=== PATIENT | male | born 1945 | race Caucasian/White ===

== ENCOUNTER 2017-03-27 07:46 | Inpatient (IN) | payer OTHER, MEDICARE ==
[~2017-03-27] VITALS: Ht 182.9 cm; Wt 81.6 kg
--- NOTE | ~2017-03-27 | OP ---
PATIENT NAME: NITISH CENTENO MEDICAL RECORD: [id number] :47 LOCATION:D.M2 D.2115 ADMISSION DATE:03/27/17 SURGEON: JOSEPH CANTU MD DATE OF OPERATION: 04/01/2017 PREOPERATIVE DIAGNOSES: 1. Cecal mass. 2. Partial small bowel obstruction secondary to cecal mass. 3. Mesenteric lymphadenopathy, likely secondary to metastatic disease. 4. Chronic kidney disease. 5. Hypertension. 6. Coronary artery disease. POSTOPERATIVE DIAGNOSES: 1. Cecal mass. 2. Partial small bowel obstruction secondary to cecal mass. 3. Mesenteric lymphadenopathy, likely secondary to metastatic disease. 4. Chronic kidney disease. 5. Hypertension. 6. Coronary artery disease. PROCEDURE: Hand-assisted laparoscopic right hemicolectomy. SURGEON: Joseph Cantu MD REPORT OF PROCEDURE: The patient's abdomen was prepped and draped in sterile fashion. A skin incision was made around the umbilicus. Electrocautery was used to dissect through the subcutaneous tissue and we penetrated the abdominal cavity. A Gelport was inserted and the abdomen was insufflated. Under direct visualization, a 5-mm trocar was placed in the epigastrium and another was placed in the right subcostal region. The patient had some adhesions present in the right upper quadrant of the omentum to the anterior abdominal wall. These were taken down with blunt dissection until this area of the abdomen was free. As I put my hand into the abdomen, I could feel the mass present and it was adherent to the inferior aspect of the right abdomen, close to the pelvic inlet. Electrocautery was used to come around the peritoneum and I was able to get past the mass, which did not appear to incorporate any vascular structures or the ureter. The mass was completely excised from the surrounding tissue, from the peritoneal attachments. At this point, we took down the white line of Toldt and the hepatic flexure and then we were able to mobilize the colon medially. The patient had some very dense and nodular lymph nodes present, extending all the way down to the retroperitoneum. The patient had some bleeding from the area around the duodenum overlying the pancreas where some of these lymph nodes were present. I Kocherized the duodenum, and at that point, was able to apply pressure to stop the bleeding. The patient's omentum was taken down between the stomach and the proximal transverse colon to facilitate mobilization of the colon. At this point, we eviscerated the mass in distal small bowel and colon out of the wound protector. Approximately 10 cm proximal to the terminal ileum, the small bowel was transected with 60 blue load KARI stapler. The proximal transverse colon was transected with the 60 blue load KARI stapler. The mesentery was taken down with sequential clamp and tie techniques with 2-0 silk ties. The base of the mesentery with the enlarged lymph nodes was tied off including 2 large vessels. These were tied off with double ligation of 3-0 silks. The mass was sent off for permanent specimen. At this point, the patient's omentum had been adherent to the abdominal wall and had beaten up OPERATIVE REPORT [id number] NITISH CENTENO pretty badly during the surgery, so this was excised and sent off for permanent specimen with the colon. As we inspected the remainder of the abdominal cavity, I saw no evidence of any distal metastatic disease, but there was still some enlarged lymph nodes present in the retroperitoneal space around the aorta and the vena cava. These were not approached. At this point, we irrigated out the abdomen thoroughly with normal saline. A [id number] anastomosis was performed of the small bowel to the transverse colon using a 60 blue load KARI stapler. The enterotomies were closed off with a 30 blue load TA stapler and then the suture lines were oversewn with Lemberted 3-0 silks. The bowel was placed back into the abdominal cavity. We irrigated out the abdomen one last time and assured there was no sign of any active bleeding, which we did not see. The midline fascia was then closed with running #1 looped PDS times 2. The wound was then irrigated out thoroughly with normal saline and reapproximated with interrupted 3-0 Vicryl. The skin was then closed with suri and dressed appropriately. COMPLICATIONS: None. CONDITION: Stable. ANESTHESIA: General endotracheal. BLOOD LOSS: 200 mL. TRANSINT:[id number] Voice Confirmation ID: [id number] DOCUMENT ID: [id number] JOSEPH CANTU MD at 1133 CC: JOSIANE ROWLAND MD and JESUS MANUEL BEE DO [id number] DICTATION DATE: 04/01/17 1540 MIXING PICKER TENDER: 04/01/17 1639 DIS IN 04/04/17 [facility] [address] [facility] [place] [address]
[2017-03-27 08:23] LABS: BASOPHILS 0.2 % (0-2); EOSINOPHILS 0.4 % (0-7); HEMATOCRIT 34.9 % (42.0-54.0); HEMOGLOBIN 11.3 g/dL (13.5-17.5); IMMATURE GRANULOCYTES 0.3 % (0-5); LYMPHOCYTES 10.9 % (15-50); MCH 26.6 pg (26.0-34.0); MCHC 32.4 g/dL (31.0-37.0); MCV 82.1 fL (80.0-100.0); MEAN PLATELET VOLUME 9.8 fL (7.4-10.4); MONOCYTES 11.9 % (2-11); NEUTROPHILS 76.3 % (40-80); PLATELET COUNT 355 10x3/uL (130-400); RBC 4.25 10x6/uL (4.20-6.10); RDW 16.1 % (11.5-14.5); WBC 12.8 10x3/uL (4.8-10.8)
[2017-03-27 08:41] LABS: ALBUMIN 2.7 g/dL (3.4-5.0); ALKALINE PHOSPHATASE 149 U/L (46-116); ALT (SGPT) 21 U/L (10-68); BILIRUBIN - TOTAL 0.79 mg/dL (0.2-1.3); CALC OSMOLALITY 286 mosm/kg (275-300); CALCIUM 9.6 mg/dL (8.5-10.1); CARBON DIOXIDE 22.7 mmol/L (21.0-32.0); CHLORIDE - SERUM 98 mmol/L (98-107); CREATININE - SERUM 2.1 mg/dL (0.6-1.3); POTASSIUM - SERUM 4.5 mmol/L (3.5-5.1); PROTEIN - SERUM 7.4 g/dL (6.4-8.2); SODIUM 135 mmol/L (136-145); UREA NITROGEN 35 mg/dL (7-18); eGFR NON AFRICAN AMERICAN 33 mL/min (90-120)
[2017-03-27 08:49] LABS: GLUCOSE 261 mg/dL (74-106)
[2017-03-27 08:52] LABS: AMYLASE - SERUM 21 U/L (25-115); CKMB 1.6 U/L (0.0-3.6); CREATINE KINASE 16 UL (21-232); LIPASE 121 U/L (73-393); PRO BNP 3199 pg/mL (0-125)
[2017-03-27 08:52] LABS: APPEARANCE HAZY (CLEAR); BILIRUBIN NEGATIVE (NEGATIVE); COLOR YELLOW (YELLOW); GLUCOSE NEGATIVE (NEGATIVE); KETONE NEGATIVE (NEGATIVE); NITRITE NEGATIVE (NEGATIVE); PROTEIN NEGATIVE (NEGATIVE); UROBILINOGEN NORMAL (NORMAL)
[2017-03-27 08:54] LABS: TROPONIN-I < 0.017 ng/mL (0.000-0.060)
[2017-03-27 16:19] VITALS: BP 110/54
[2017-03-27] MEDS ORDERED: COUMADIN5 MG PO (16:25)
[2017-03-27] MEDS ORDERED: COUMADIN2.5 MG PO (16:25)
[2017-03-27] MEDS ORDERED: ALDACTONE25 MG PO (16:26)
[2017-03-27] MEDS ORDERED: TOPROL XL200 MG PO (16:26)
[2017-03-27] MEDS ORDERED: LISINOPRIL5 MG PO (16:27)
[2017-03-27] MEDS ORDERED: LIPITOR80 MG PO (16:27)
[2017-03-27 16:33] VITALS: BP 110/54; BMI 24.4
[2017-03-27 21:32] LABS: INR 8.5 (0.85-1.17)
[2017-03-27 21:39] VITALS: BP 93/61
[2017-03-28] VITALS (12 sets, daily range): BP systolic 87–144; BP diastolic 52–68; Ht 182.9 cm; Wt 81.6 kg
[2017-03-28 05:46] LABS: BASOPHILS 0.2 % (0-2); EOSINOPHILS 0.6 % (0-7); HEMATOCRIT 32.5 % (42.0-54.0); HEMOGLOBIN 10.3 g/dL (13.5-17.5); IMMATURE GRANULOCYTES 0.2 % (0-5); LYMPHOCYTES 12.3 % (15-50); MCH 26.7 pg (26.0-34.0); MCHC 31.7 g/dL (31.0-37.0); MONOCYTES 16.1 % (2-11); NEUTROPHILS 70.6 % (40-80); PLATELET COUNT 319 10x3/uL (130-400); RBC 3.86 10x6/uL (4.20-6.10); RDW 16.6 % (11.5-14.5)
[2017-03-28 05:49] LABS: MCV 84.2 fL (80.0-100.0); WBC 6.5 10x3/uL (4.8-10.8)
[2017-03-28 06:08] LABS: ALBUMIN 2.2 g/dL (3.4-5.0); ANION GAP 14.2 mmol/L (8-16); BILIRUBIN - TOTAL 0.4 mg/dL (0.2-1.3); CALCIUM 8.9 mg/dL (8.5-10.1); CARBON DIOXIDE 25.3 mmol/L (21.0-32.0); CREATININE - SERUM 1.9 mg/dL (0.6-1.3); PROTEIN - SERUM 6.3 g/dL (6.4-8.2)
[2017-03-28 06:09] LABS: POTASSIUM - SERUM 5.5 mmol/L (3.5-5.1)
[2017-03-28 07:56] LABS: INR 9.28 (0.85-1.17)
[2017-03-28 15:40] LABS: INR 2.86 (0.85-1.17); PROTIME 29.3 SECONDS (11.6-15.0)
[2017-03-28 16:30] LABS: HEMATOCRIT 28.7 % (42.0-54.0)
[2017-03-28 22:52] LABS: HEMATOCRIT 30.4 % (42.0-54.0); HEMOGLOBIN 9.5 g/dL (13.5-17.5)
[2017-03-28 23:19] LABS: INR 2.62 (0.85-1.17); PROTIME 27.4 SECONDS (11.6-15.0)
[2017-03-29] VITALS (20 sets, daily range): BP systolic 84–121; BP diastolic 47–72
[2017-03-29 05:54] LABS: LYMPHOCYTES 8.3 % (15-50); MCHC 32.2 g/dL (31.0-37.0); MCV 83.9 fL (80.0-100.0); MEAN PLATELET VOLUME 9.4 fL (7.4-10.4); NEUTROPHILS 74.6 % (40-80); RBC 4.29 10x6/uL (4.20-6.10); RDW 15.9 % (11.5-14.5); WBC 6.9 10x3/uL (4.8-10.8)
[2017-03-29 05:56] LABS: HEMOGLOBIN 11.6 g/dL (13.5-17.5); PLATELET COUNT 234 10x3/uL (130-400)
[2017-03-29 06:10] LABS: INR 2.15 (0.85-1.17); PROTIME 23.3 SECONDS (11.6-15.0)
[2017-03-29 06:12] LABS: ALBUMIN 2.3 g/dL (3.4-5.0); ANION GAP 10.2 mmol/L (8-16); BILIRUBIN - TOTAL 0.6 mg/dL (0.2-1.3); CALCIUM 8.5 mg/dL (8.5-10.1); CARBON DIOXIDE 27.1 mmol/L (21.0-32.0); CREATININE - SERUM 1.5 mg/dL (0.6-1.3); POTASSIUM - SERUM 4.3 mmol/L (3.5-5.1); PROTEIN - SERUM 6.2 g/dL (6.4-8.2)
[2017-03-29 09:55] LABS: HEMATOCRIT 36.3 % (42.0-54.0); HEMOGLOBIN 11.8 g/dL (13.5-17.5)
[2017-03-29 15:09] LABS: HEMATOCRIT 36.7 % (42.0-54.0); HEMOGLOBIN 11.8 g/dL (13.5-17.5)
[2017-03-29 21:19] LABS: HEMATOCRIT 35.9 % (42.0-54.0); HEMOGLOBIN 11.5 g/dL (13.5-17.5)
[2017-03-30 01:15] VITALS: BP 108/57
[2017-03-30 05:05] VITALS: BP 120/68
[2017-03-30 05:32] LABS: BASOPHILS 0.2 % (0-2); EOSINOPHILS 2.1 % (0-7); HEMATOCRIT 34.6 % (42.0-54.0); IMMATURE GRANULOCYTES 0.5 % (0-5); LYMPHOCYTES 10.3 % (15-50); MCHC 31.8 g/dL (31.0-37.0); MEAN PLATELET VOLUME 10.1 fL (7.4-10.4); MONOCYTES 16.3 % (2-11); NEUTROPHILS 70.6 % (40-80); PLATELET COUNT 226 10x3/uL (130-400); RBC 4.07 10x6/uL (4.20-6.10); RDW 16.4 % (11.5-14.5); WBC 6.6 10x3/uL (4.8-10.8)
[2017-03-30 05:46] LABS: INR 1.58 (0.85-1.17); PROTIME 18.3 SECONDS (11.6-15.0)
[2017-03-30 06:02] LABS: ALBUMIN 2.1 g/dL (3.4-5.0); ANION GAP 11.3 mmol/L (8-16); BILIRUBIN - TOTAL 0.6 mg/dL (0.2-1.3); CARBON DIOXIDE 25.6 mmol/L (21.0-32.0); CREATININE - SERUM 1.2 mg/dL (0.6-1.3); POTASSIUM - SERUM 3.9 mmol/L (3.5-5.1); PROTEIN - SERUM 5.8 g/dL (6.4-8.2)
[2017-03-30 07:55] VITALS: BP 105/62
[2017-03-30 09:03] LABS: HEMATOCRIT 35.1 % (42.0-54.0); HEMOGLOBIN 11.2 g/dL (13.5-17.5)
[2017-03-30 12:00] VITALS: BP 123/52
[2017-03-30 15:34] LABS: HEMATOCRIT 35.2 % (42.0-54.0); HEMOGLOBIN 11.2 g/dL (13.5-17.5)
[2017-03-30 16:14] VITALS: BP 118/64
[2017-03-30 21:40] LABS: HEMOGLOBIN 10.8 g/dL (13.5-17.5)
[2017-03-30 22:26] VITALS: BP 125/67
[2017-03-31 05:05] LABS: BASOPHILS 0.1 % (0-2); EOSINOPHILS 1.2 % (0-7); HEMATOCRIT 35.3 % (42.0-54.0); IMMATURE GRANULOCYTES 0.4 % (0-5); MCH 26.8 pg (26.0-34.0); MCHC 31.2 g/dL (31.0-37.0); MCV 85.9 fL (80.0-100.0); MEAN PLATELET VOLUME 9.8 fL (7.4-10.4); MONOCYTES 11.8 % (2-11); NEUTROPHILS 78.5 % (40-80); PLATELET COUNT 243 10x3/uL (130-400); RBC 4.11 10x6/uL (4.20-6.10); RDW 16.2 % (11.5-14.5)
[2017-03-31 05:15] VITALS: BP 124/50
[2017-03-31 05:20] LABS: BILIRUBIN - TOTAL 0.6 mg/dL (0.2-1.3); CALCIUM 7.8 mg/dL (8.5-10.1); CARBON DIOXIDE 27.5 mmol/L (21.0-32.0); CREATININE - SERUM 1.1 mg/dL (0.6-1.3); POTASSIUM - SERUM 3.5 mmol/L (3.5-5.1); PROTEIN - SERUM 5.8 g/dL (6.4-8.2)
[2017-03-31 05:21] LABS: INR 1.64 (0.85-1.17); PROTIME 18.9 SECONDS (11.6-15.0)
[2017-03-31 08:37] VITALS: BP 118/65
[2017-03-31 10:44] LABS: HEMATOCRIT 38.1 % (42.0-54.0); HEMOGLOBIN 12.1 g/dL (13.5-17.5)
[2017-03-31 11:47] VITALS: BP 123/63
[2017-03-31 18:26] VITALS: BP 119/59
[2017-03-31 22:21] VITALS: BP 124/59
[2017-04-01 00:56] VITALS: BP 117/60
[2017-04-01 05:01] LABS: BASOPHILS 0.2 % (0-2); EOSINOPHILS 0.8 % (0-7); HEMATOCRIT 34.8 % (42.0-54.0); HEMOGLOBIN 11.1 g/dL (13.5-17.5); IMMATURE GRANULOCYTES 0.7 % (0-5); LYMPHOCYTES 9.3 % (15-50); MCH 27.2 pg (26.0-34.0); MCHC 31.9 g/dL (31.0-37.0); MCV 85.3 fL (80.0-100.0); MONOCYTES 10.6 % (2-11); NEUTROPHILS 78.4 % (40-80); PLATELET COUNT 232 10x3/uL (130-400); RBC 4.08 10x6/uL (4.20-6.10); RDW 16.3 % (11.5-14.5); WBC 8.7 10x3/uL (4.8-10.8)
[2017-04-01 05:13] LABS: INR 1.47 (0.85-1.17); PROTIME 17.4 SECONDS (11.6-15.0)
[2017-04-01 05:20] VITALS: BP 108/62
[2017-04-01 05:26] LABS: ALKALINE PHOSPHATASE 117 U/L (46-116); ALT (SGPT) 12 U/L (10-68); CALC OSMOLALITY 288 mosm/kg (275-300); CALCIUM 7.9 mg/dL (8.5-10.1); CARBON DIOXIDE 25.4 mmol/L (21.0-32.0); CHLORIDE - SERUM 109 mmol/L (98-107); GLUCOSE 151 mg/dL (74-106); POTASSIUM - SERUM 3.6 mmol/L (3.5-5.1); PROTEIN - SERUM 5.9 g/dL (6.4-8.2); SODIUM 144 mmol/L (136-145); eGFR NON AFRICAN AMERICAN 78 mL/min (90-120)
[2017-04-01 05:42] LABS: UREA NITROGEN 9 mg/dL (7-18)
[2017-04-01 16:37] VITALS: BP 106/50
[2017-04-01 22:12] VITALS: BP 105/58
[2017-04-02] VITALS (7 sets, daily range): BP systolic 80–138; BP diastolic 51–68
[2017-04-02 06:20] LABS: BASOPHILS 0.1 % (0-2); EOSINOPHILS 0.3 % (0-7); HEMATOCRIT 30.1 % (42.0-54.0); HEMOGLOBIN 9.4 g/dL (13.5-17.5); IMMATURE GRANULOCYTES 0.3 % (0-5); LYMPHOCYTES 7.5 % (15-50); MCH 26.7 pg (26.0-34.0); MCHC 31.2 g/dL (31.0-37.0); MCV 85.5 fL (80.0-100.0); MEAN PLATELET VOLUME 9.8 fL (7.4-10.4); MONOCYTES 13.2 % (2-11); NEUTROPHILS 78.6 % (40-80); PLATELET COUNT 242 10x3/uL (130-400); RBC 3.52 10x6/uL (4.20-6.10); RDW 16.6 % (11.5-14.5); WBC 8.9 10x3/uL (4.8-10.8)
[2017-04-02 06:50] LABS: ALBUMIN 1.7 g/dL (3.4-5.0); ANION GAP 13.8 mmol/L (8-16); BILIRUBIN - TOTAL 1.2 mg/dL (0.2-1.3); CALCIUM 7.3 mg/dL (8.5-10.1); CARBON DIOXIDE 23.5 mmol/L (21.0-32.0); MAGNESIUM - SERUM 1.7 mg/dL (1.8-2.4); PHOSPHOROUS 2.2 mg/dL (2.5-4.9); POTASSIUM - SERUM 3.3 mmol/L (3.5-5.1); PROTEIN - SERUM 5.2 g/dL (6.4-8.2)
[2017-04-02 06:51] LABS: CREATININE - SERUM 1.4 mg/dL (0.6-1.3)
[2017-04-02 06:54] LABS: INR 1.73 (0.85-1.17); PROTIME 19.7 SECONDS (11.6-15.0)
[2017-04-02 17:02] LABS: BASOPHILS 0.2 % (0-2); EOSINOPHILS 0.9 % (0-7); HEMATOCRIT 30.8 % (42.0-54.0); HEMOGLOBIN 9.6 g/dL (13.5-17.5); IMMATURE GRANULOCYTES 0.4 % (0-5); LYMPHOCYTES 6.8 % (15-50); MCH 26.7 pg (26.0-34.0); MCHC 31.2 g/dL (31.0-37.0); MCV 85.8 fL (80.0-100.0); MEAN PLATELET VOLUME 9.8 fL (7.4-10.4); MONOCYTES 11.1 % (2-11); NEUTROPHILS 80.6 % (40-80); PLATELET COUNT 208 10x3/uL (130-400); RBC 3.59 10x6/uL (4.20-6.10); RDW 16.5 % (11.5-14.5); WBC 10.7 10x3/uL (4.8-10.8)
[2017-04-02 17:48] LABS: CALC OSMOLALITY 295 mosm/kg (275-300); CALCIUM 7.6 mg/dL (8.5-10.1); CARBON DIOXIDE 23.2 mmol/L (21.0-32.0); CHLORIDE - SERUM 111 mmol/L (98-107); CKMB 1.3 U/L (0.0-3.6); CREATINE KINASE 38 UL (21-232); CREATININE - SERUM 1.3 mg/dL (0.6-1.3); GLUCOSE 185 mg/dL (74-106); SODIUM 146 mmol/L (136-145); UREA NITROGEN 13 mg/dL (7-18); eGFR NON AFRICAN AMERICAN 58 mL/min (90-120)
[2017-04-02 17:58] LABS: POTASSIUM - SERUM 3.8 mmol/L (3.5-5.1); TROPONIN-I < 0.017 ng/mL (0.000-0.060)
[2017-04-02 23:12] LABS: CKMB 1.9 U/L (0.0-3.6); CREATINE KINASE 30 UL (21-232)
[2017-04-02 23:29] LABS: TROPONIN-I 0.078 ng/mL (0.000-0.060)
[2017-04-03] VITALS: BP 118/68
[2017-04-03 04:00] VITALS: BP 120/78
[2017-04-03 05:26] LABS: CKMB 2.5 U/L (0.0-3.6); CREATINE KINASE 25 UL (21-232)
[2017-04-03 05:29] LABS: TROPONIN-I 0.107 ng/mL (0.000-0.060)
[2017-04-03 10:26] VITALS: BP 119/60
[2017-04-03 13:06] VITALS: BP 117/68
[2017-04-03 20:00] VITALS: BP 123/67
[2017-04-04] VITALS: BP 117/67
[2017-04-04 04:00] VITALS: BP 129/65
[2017-04-04 09:10] VITALS: BP 130/61
[2017-04-04] MEDS ORDERED: HYDROCODONE-APA1 TAB PO (11:39)
[2017-04-04] MEDS ORDERED: CARDIZEM60 MG PO (11:39)
[2017-04-04 12:55] VITALS: BP 102/53
== END 2017-04-04 16:44 | disposition home or self-care (01) | DRG 330 ==
LOC: D.ER 07:46 → D.M2 14:18 → D.MS 14:18 → D.M2 04-02 17:16
PROVIDERS: Family Medicine; General Practice; Surgery
PROC: 0DBH8ZX Excision of Cecum, Via Natural or Artificial Opening Endoscopic, Diagnostic (ICD-10-PCS; 2017-03-31)
PROC: 0DTF0ZZ Resection of Right Large Intestine, Open Approach (ICD-10-PCS; principal; 2017-04-01 14:00)
DX: C18.0 Malignant neoplasm of cecum (principal); K56.609 Unspecified intestinal obstruction, unspecified as to partial versus complete obstruction; I13.0 Hypertensive heart and chronic kidney disease with heart failure and stage 1 through stage 4 chronic kidney disease, or unspecified chronic kidney disease; D62 Acute posthemorrhagic anemia; K92.2 Gastrointestinal hemorrhage, unspecified; I50.22 Chronic systolic (congestive) heart failure; I25.10 Atherosclerotic heart disease of native coronary artery without angina pectoris; J44.9 Chronic obstructive pulmonary disease, unspecified; E11.22 Type 2 diabetes mellitus with diabetic chronic kidney disease; N18.3 Chronic kidney disease, stage 3 (moderate); I50.9 Heart failure, unspecified; I48.91 Unspecified atrial fibrillation; Z95.810 Presence of automatic (implantable) cardiac defibrillator; Z87.891 Personal history of nicotine dependence; Z95.1 Presence of aortocoronary bypass graft

== ENCOUNTER 2017-04-10 10:01 | Inpatient (IN) | payer MEDICARE ==
[~2017-04-10 10:01] MED LIST: ALDACTONE25 MG PO; CARDIZEM60 MG PO; COUMADIN2.5 MG PO; COUMADIN5 MG PO; HYDROCODONE-APA1 TAB PO; LIPITOR80 MG PO; LISINOPRIL5 MG PO; TOPROL XL200 MG PO
[2017-04-10 10:35] LABS: BASOPHILS 0.1 % (0-2); EOSINOPHILS 0.4 % (0-7); HEMOGLOBIN 8.8 g/dL (13.5-17.5); IMMATURE GRANULOCYTES 0.2 % (0-5); LYMPHOCYTES 4.1 % (15-50); MCH 26.8 pg (26.0-34.0); MCHC 32.6 g/dL (31.0-37.0); MCV 82.3 fL (80.0-100.0); MEAN PLATELET VOLUME 9.6 fL (7.4-10.4); MONOCYTES 7.7 % (2-11); NEUTROPHILS 87.5 % (40-80); RBC 3.28 10x6/uL (4.20-6.10); RDW 16.7 % (11.5-14.5); WBC 16.4 10x3/uL (4.8-10.8)
[2017-04-10 10:40] LABS: PLATELET COUNT 315 10x3/uL (130-400)
[2017-04-10 10:55] LABS: ALBUMIN 1.5 g/dL (3.4-5.0); ANION GAP 10.4 mmol/L (8-16); BILIRUBIN - TOTAL 0.8 mg/dL (0.2-1.3); CARBON DIOXIDE 29.4 mmol/L (21.0-32.0); CREATININE - SERUM 1.3 mg/dL (0.6-1.3); POTASSIUM - SERUM 3.8 mmol/L (3.5-5.1); PROTEIN - SERUM 5.7 g/dL (6.4-8.2)
[2017-04-10 10:56] LABS: APPEARANCE CLOUDY (CLEAR); BACTERIA MANY /hpf (NONE SEEN); BILIRUBIN NEGATIVE (NEGATIVE); COLOR DK YELLOW (YELLOW); EPITHELIAL CELLS 0-5 /hpf (0-5); GLUCOSE NEGATIVE (NEGATIVE); KETONE NEGATIVE (NEGATIVE); NITRITE NEGATIVE (NEGATIVE); PROTEIN NEGATIVE (NEGATIVE); RED CELLS - URINE OCC /hpf (0-5); SPECIFIC GRAVITY 1.005 (1.005-1.020); WHITE CELLS - URINE 25-50 /hpf (0-5)
[2017-04-10 12:23] LABS: INR 2.22 (0.85-1.17)
[2017-04-10 12:25] LABS: CREATINE KINASE 11 UL (21-232); MAGNESIUM - SERUM 2.2 mg/dL (1.8-2.4); PRO BNP 7521 pg/mL (0-125)
[2017-04-10 12:26] LABS: TROPONIN-I < 0.017 ng/mL (0.000-0.060)
[2017-04-10 12:54] LABS: D-DIMER-QUANTITATIVE 6.32 ug/mLFEU (0.20-0.54)
[2017-04-10 21:58] VITALS: BP 128/58
[2017-04-10 23:47] VITALS: BP 128/58; BMI 23.1
[2017-04-11 00:11] VITALS: BP 128/54
[2017-04-11 03:10] LABS: BASOPHILS 0.1 % (0-2); EOSINOPHILS 0.7 % (0-7); HEMATOCRIT 25.5 % (42.0-54.0); HEMOGLOBIN 8.1 g/dL (13.5-17.5); IMMATURE GRANULOCYTES 0.4 % (0-5); LYMPHOCYTES 6.3 % (15-50); MCH 26.4 pg (26.0-34.0); MCHC 31.8 g/dL (31.0-37.0); MCV 83.1 fL (80.0-100.0); MEAN PLATELET VOLUME 9.6 fL (7.4-10.4); MONOCYTES 7.6 % (2-11); NEUTROPHILS 84.9 % (40-80); PLATELET COUNT 326 10x3/uL (130-400); RBC 3.07 10x6/uL (4.20-6.10); RDW 16.9 % (11.5-14.5); WBC 13.9 10x3/uL (4.8-10.8)
[2017-04-11 03:27] LABS: ALBUMIN 1.3 g/dL (3.4-5.0); ANION GAP 11.8 mmol/L (8-16); BILIRUBIN - TOTAL 0.73 mg/dL (0.2-1.3); CALCIUM 7.7 mg/dL (8.5-10.1); CARBON DIOXIDE 29.1 mmol/L (21.0-32.0); CREATININE - SERUM 1.2 mg/dL (0.6-1.3); POTASSIUM - SERUM 3.9 mmol/L (3.5-5.1); PROTEIN - SERUM 5.6 g/dL (6.4-8.2)
[2017-04-11 05:16] VITALS: BP 132/58
[2017-04-11 08:39] VITALS: BP 130/57
[2017-04-11 13:14] VITALS: BP 121/59
[2017-04-11 14:12] VITALS: BMI 23.0
[2017-04-11 16:48] VITALS: BP 115/60
[2017-04-11 21:35] VITALS: BP 117/57
[2017-04-12 00:45] VITALS: BP 112/61
[2017-04-12 04:54] VITALS: BP 118/60
[2017-04-12 08:07] LABS: BASOPHILS 0.1 % (0-2); EOSINOPHILS 0.6 % (0-7); HEMATOCRIT 24.7 % (42.0-54.0); HEMOGLOBIN 7.9 g/dL (13.5-17.5); IMMATURE GRANULOCYTES 0.4 % (0-5); LYMPHOCYTES 4.4 % (15-50); MCH 26.9 pg (26.0-34.0); MEAN PLATELET VOLUME 9.4 fL (7.4-10.4); MONOCYTES 7.4 % (2-11); NEUTROPHILS 87.1 % (40-80); PLATELET COUNT 382 10x3/uL (130-400); RBC 2.94 10x6/uL (4.20-6.10); WBC 16.3 10x3/uL (4.8-10.8)
[2017-04-12 08:10] VITALS: BP 118/63
[2017-04-12 08:18] LABS: ALBUMIN 1.2 g/dL (3.4-5.0); ANION GAP 12.4 mmol/L (8-16); BILIRUBIN - TOTAL 0.53 mg/dL (0.2-1.3); CALCIUM 7.6 mg/dL (8.5-10.1); CARBON DIOXIDE 25.7 mmol/L (21.0-32.0); CREATININE - SERUM 1.2 mg/dL (0.6-1.3); MAGNESIUM - SERUM 2.2 mg/dL (1.8-2.4); PHOSPHOROUS 3.1 mg/dL (2.5-4.9); POTASSIUM - SERUM 4.1 mmol/L (3.5-5.1); PROTEIN - SERUM 5.3 g/dL (6.4-8.2)
[2017-04-12 11:31] VITALS: BP 118/59
[2017-04-12 15:29] VITALS: BP 123/58
[2017-04-13 01:49] VITALS: BP 114/63
[2017-04-13 04:57] VITALS: BP 111/68
[2017-04-13 07:54] LABS: BASOPHILS 0.2 % (0-2); EOSINOPHILS 1.2 % (0-7); IMMATURE GRANULOCYTES 0.3 % (0-5); LYMPHOCYTES 4.6 % (15-50); MCH 27.6 pg (26.0-34.0); MCHC 33.3 g/dL (31.0-37.0); MCV 82.7 fL (80.0-100.0); MEAN PLATELET VOLUME 9.4 fL (7.4-10.4); MONOCYTES 5.8 % (2-11); NEUTROPHILS 87.9 % (40-80); PLATELET COUNT 434 10x3/uL (130-400); RDW 16.4 % (11.5-14.5); WBC 16.9 10x3/uL (4.8-10.8)
[2017-04-13 07:55] LABS: HEMATOCRIT 31.5 % (42.0-54.0); HEMOGLOBIN 10.5 g/dL (13.5-17.5); RBC 3.81 10x6/uL (4.20-6.10)
[2017-04-13 08:08] LABS: ALBUMIN 1.4 g/dL (3.4-5.0); ANION GAP 11.3 mmol/L (8-16); BILIRUBIN - TOTAL 0.88 mg/dL (0.2-1.3); CALCIUM 7.9 mg/dL (8.5-10.1); CARBON DIOXIDE 27.7 mmol/L (21.0-32.0); CREATININE - SERUM 1.1 mg/dL (0.6-1.3); MAGNESIUM - SERUM 1.9 mg/dL (1.8-2.4); PHOSPHOROUS 2.6 mg/dL (2.5-4.9); PROTEIN - SERUM 5.6 g/dL (6.4-8.2)
[2017-04-13 08:19] LABS: INR 5.45 (0.85-1.17); PROTIME 48.6 SECONDS (11.6-15.0)
[2017-04-13 09:10] VITALS: BP 132/68
[2017-04-13 10:42] LABS: PROTIME 46.9 SECONDS (11.6-15.0)
[2017-04-13 10:58] LABS: INR 5.21 (0.85-1.17)
[2017-04-13 11:34] VITALS: BP 128/66
[2017-04-13 22:00] VITALS: BP 125/64
[2017-04-14 01:42] VITALS: BP 142/64
[2017-04-14 04:32] LABS: BASOPHILS 0.2 % (0-2); EOSINOPHILS 1.6 % (0-7); HEMATOCRIT 32.5 % (42.0-54.0); HEMOGLOBIN 10.6 g/dL (13.5-17.5); IMMATURE GRANULOCYTES 0.5 % (0-5); LYMPHOCYTES 6.5 % (15-50); MCH 27.3 pg (26.0-34.0); MCHC 32.6 g/dL (31.0-37.0); MCV 83.8 fL (80.0-100.0); MEAN PLATELET VOLUME 9.3 fL (7.4-10.4); MONOCYTES 6.3 % (2-11); NEUTROPHILS 84.9 % (40-80); PLATELET COUNT 516 10x3/uL (130-400); RBC 3.88 10x6/uL (4.20-6.10); RDW 16.6 % (11.5-14.5); WBC 13.1 10x3/uL (4.8-10.8)
[2017-04-14 04:48] LABS: INR 4.67 (0.85-1.17); PROTIME 43.1 SECONDS (11.6-15.0)
[2017-04-14 05:08] LABS: ALBUMIN 1.3 g/dL (3.4-5.0); ANION GAP 9.2 mmol/L (8-16); BILIRUBIN - TOTAL 0.54 mg/dL (0.2-1.3); CALCIUM 7.9 mg/dL (8.5-10.1); CARBON DIOXIDE 28.5 mmol/L (21.0-32.0); CREATININE - SERUM 1.2 mg/dL (0.6-1.3); MAGNESIUM - SERUM 1.9 mg/dL (1.8-2.4); POTASSIUM - SERUM 3.7 mmol/L (3.5-5.1); PROTEIN - SERUM 5.6 g/dL (6.4-8.2)
[2017-04-14 05:55] VITALS: BP 124/65
[2017-04-14 08:04] VITALS: BP 123/66
[2017-04-14 12:02] VITALS: BP 134/67
[2017-04-14 15:33] VITALS: BP 139/66
[2017-04-14 21:52] VITALS: BP 128/66
[2017-04-15 00:48] VITALS: BP 128/70
[2017-04-15 05:28] LABS: INR 2.91 (0.85-1.17); PROTIME 29.7 SECONDS (11.6-15.0)
[2017-04-15 05:33] VITALS: BP 116/71
[2017-04-15 05:40] LABS: ALBUMIN 1.2 g/dL (3.4-5.0); ANION GAP 12.3 mmol/L (8-16); BILIRUBIN - TOTAL 0.48 mg/dL (0.2-1.3); CALCIUM 7.7 mg/dL (8.5-10.1); CARBON DIOXIDE 26.5 mmol/L (21.0-32.0); CREATININE - SERUM 1.1 mg/dL (0.6-1.3); PHOSPHOROUS 2.3 mg/dL (2.5-4.9); POTASSIUM - SERUM 3.8 mmol/L (3.5-5.1); PROTEIN - SERUM 5.2 g/dL (6.4-8.2)
[2017-04-15 06:04] LABS: HEMATOCRIT 29.3 % (42.0-54.0); HEMOGLOBIN 9.8 g/dL (13.5-17.5); LYMPHOCYTES 8.9 % (15-50); MCH 28.2 pg (26.0-34.0); MCHC 33.4 g/dL (31.0-37.0); MCV 84.4 fL (80.0-100.0); MEAN PLATELET VOLUME 8.9 fL (7.4-10.4); NEUTROPHILS 82.6 % (40-80); PLATELET COUNT 517 10x3/uL (130-400); RBC 3.47 10x6/uL (4.20-6.10)
[2017-04-15 06:12] LABS: WBC 9.5 10x3/uL (4.8-10.8)
[2017-04-15 07:54] VITALS: BP 136/71
[2017-04-15 12:26] VITALS: BP 138/72
[2017-04-15 16:14] VITALS: BP 130/68
[2017-04-15 21:28] VITALS: BP 125/65
[2017-04-16 00:56] VITALS: BP 124/64
[2017-04-16 04:36] VITALS: BP 124/69
[2017-04-16 07:46] LABS: BASOPHILS 0.2 % (0-2); EOSINOPHILS 1.3 % (0-7); HEMATOCRIT 29.7 % (42.0-54.0); HEMOGLOBIN 9.4 g/dL (13.5-17.5); IMMATURE GRANULOCYTES 0.5 % (0-5); LYMPHOCYTES 10.8 % (15-50); MCH 27.1 pg (26.0-34.0); MCHC 31.6 g/dL (31.0-37.0); MCV 85.6 fL (80.0-100.0); MEAN PLATELET VOLUME 8.9 fL (7.4-10.4); MONOCYTES 7.4 % (2-11); NEUTROPHILS 79.8 % (40-80); PLATELET COUNT 487 10x3/uL (130-400); RBC 3.47 10x6/uL (4.20-6.10); RDW 16.8 % (11.5-14.5); WBC 8.2 10x3/uL (4.8-10.8)
[2017-04-16 07:57] LABS: ALBUMIN 1.4 g/dL (3.4-5.0); ALKALINE PHOSPHATASE 134 U/L (46-116); ALT (SGPT) 24 U/L (10-68); CALC OSMOLALITY 282 mosm/kg (275-300); CALCIUM 7.7 mg/dL (8.5-10.1); CARBON DIOXIDE 28.6 mmol/L (21.0-32.0); CHLORIDE - SERUM 106 mmol/L (98-107); GLUCOSE 143 mg/dL (74-106); POTASSIUM - SERUM 4.3 mmol/L (3.5-5.1); PROTEIN - SERUM 5.3 g/dL (6.4-8.2); SODIUM 141 mmol/L (136-145); UREA NITROGEN 12 mg/dL (7-18); eGFR NON AFRICAN AMERICAN 78 mL/min (90-120)
[2017-04-16 08:05] LABS: INR 2.05 (0.85-1.17); PROTIME 22.5 SECONDS (11.6-15.0)
[2017-04-16 08:06] VITALS: BP 126/73
[2017-04-16] MEDS ORDERED: AUGMENTIN 875-11 TAB PO (10:28)
[2017-04-16] MEDS ORDERED: COUMADIN2.5 MG PO (10:30)
== END 2017-04-16 16:16 | disposition home or self-care (01) | DRG 811 ==
LOC: D.ER 10:01 → D.SDCHOLD 17:31 → D.MS 17:31
PROVIDERS: Family Medicine; Nurse Practitioner Family; Surgery
DX: D62 Acute posthemorrhagic anemia (principal); J18.9 Pneumonia, unspecified organism; N39.0 Urinary tract infection, site not specified; I13.0 Hypertensive heart and chronic kidney disease with heart failure and stage 1 through stage 4 chronic kidney disease, or unspecified chronic kidney disease; J98.11 Atelectasis; C19 Malignant neoplasm of rectosigmoid junction; C77.2 Secondary and unspecified malignant neoplasm of intra-abdominal lymph nodes; E11.22 Type 2 diabetes mellitus with diabetic chronic kidney disease; N18.3 Chronic kidney disease, stage 3 (moderate); I50.9 Heart failure, unspecified; I25.10 Atherosclerotic heart disease of native coronary artery without angina pectoris; Z99.81 Dependence on supplemental oxygen; G47.33 Obstructive sleep apnea (adult) (pediatric); J30.9 Allergic rhinitis, unspecified; Z95.810 Presence of automatic (implantable) cardiac defibrillator; Z95.1 Presence of aortocoronary bypass graft; Z87.891 Personal history of nicotine dependence; B96.89 Other specified bacterial agents as the cause of diseases classified elsewhere

== ENCOUNTER 2017-05-02 12:12 | Emergency (ER) | payer MEDICARE, OTHER ==
[~2017-05-02 12:12] MED LIST changes: +AUGMENTIN 875-11 TAB PO
[2017-05-02 15:16] LABS: BASOPHILS 0.3 % (0-2); EOSINOPHILS 0.8 % (0-7); HEMATOCRIT 32.9 % (42.0-54.0); HEMOGLOBIN 10.5 g/dL (13.5-17.5); IMMATURE GRANULOCYTES 0.3 % (0-5); MCH 27.5 pg (26.0-34.0); MCHC 31.9 g/dL (31.0-37.0); MCV 86.1 fL (80.0-100.0); MONOCYTES 4.4 % (2-11); NEUTROPHILS 83.2 % (40-80); RBC 3.82 10x6/uL (4.20-6.10); RDW 17.2 % (11.5-14.5); WBC 9.7 10x3/uL (4.8-10.8)
[2017-05-02 15:17] LABS: PLATELET COUNT 280 10x3/uL (130-400)
[2017-05-02 15:30] LABS: ALBUMIN 2.2 g/dL (3.4-5.0); ANION GAP 12.9 mmol/L (8-16); BILIRUBIN - TOTAL 0.35 mg/dL (0.2-1.3); CALCIUM 8.9 mg/dL (8.5-10.1); CARBON DIOXIDE 25.2 mmol/L (21.0-32.0); CREATININE - SERUM 1.2 mg/dL (0.6-1.3); POTASSIUM - SERUM 5.1 mmol/L (3.5-5.1); PROTEIN - SERUM 6.6 g/dL (6.4-8.2)
== END 2017-05-02 18:29 ==
LOC: D.ER 12:12
PROVIDERS: Emergency Medicine
DX: I49.9 Cardiac arrhythmia, unspecified (principal); T82.897A Other specified complication of cardiac prosthetic devices, implants and grafts, initial encounter

== ENCOUNTER 2017-06-02 12:50 | Inpatient (IN) | payer MEDICARE, OTHER ==
[2017-06-02] VITALS (20 sets, daily range): BP systolic 77–110; BP diastolic 56–97; BMI 22.6
[~2017-06-02] VITALS: Ht 182.9 cm; Wt 84.5 kg
--- NOTE | ~2017-06-02 | EC ---
PATIENT:NITISH CENTENO DATE OF SERVICE: 06/02/17 SEX: M MEDICAL RECORD: [id number] DATE OF : 47 LOCATION:D.MS [place] AGE OF PATIENT: 72 ADMISSION DATE: 06/02/17 REFERRING PHYSICIAN: INTERPRETING PHYSICIAN: OSMAR COREY MD ECHOCARDIOGRAM REPORT ECHO CHARGES 4 ECHO COMPLETE Date: 06/03 CLINICAL DIAGNOSIS: CHF/ATRIAL FLUTTER HX ICD ECHOCARDIOGRAPHIC MEASUREMENTS (adult normal given) AC root (d.<3.7cm) 3.2 cm LV Septum d (<1.2 cm> 1.3 cm Valve Excursion 1.8 cm LV Septum (systole) 1.5 cm Left Atria (s.<4.0cm> 4.2 cm LVPW d(<1.2cm) 1.8 cm RV (d.<2.3cm) 4.7 cm LVPW (sytole) 2.0 cm LV diastole(<5.6CM) 6.5 cm MV E-F(>70mm/sec) cm LV systole 5.5 cm LVOT Diameter 2.0 cm MV exc.(>10mm) cm Est.ejection fraction (50-75%) % DOPPLER: LVIT cm/sec A 30.0 cm/sec E 80.0 cm/sec LA cm/sec RVSP 41 mmHg LVOT 65 cm/sec AOP1/2T m/s Asc. Ao 112 cm/sec RVOT 95 cm/sec RA cm/sec PA 102 cm/sec AV Gradient Peak 5.02 mmHg AV Mean 2.48 mmHg AV Area 1.9 cm MV Gradient Peak 2.93 mmHg MV Mean 0.96 mmHg MV Area cm COMMENTS: Hand Sprayer: 2 TK AKHTAR Public Health Worker: 4 Dr. Corey TAPE# PACS Pericardial Effusion N DATE OF SERVICE: PROCEDURE: Transthoracic echocardiogram. FINDINGS: 1. Left ventricle appears to be dilated. There is regional wall motion abnormalities. Anterior septal wall is mildly dyskinetic. There is global hypokinesis. Inferior basal wall is dyskinetic. Overall, ejection fraction is 15% to 20%. The right ventricle is moderately to severely dilated. 2. The left atrium is mildly dilated. ECHOCARDIOGRAM REPORT [id number] NITISH CENTENO 3. The aortic valve is normal. 4. The mitral valve has mild mitral regurgitation. 5. Tricuspid valve has mild tricuspid regurgitation. RVSP is estimated at 51 mmHg. 6. The pericardium is normal. 7. The right atrium is normal. CONCLUSION: This is a patient what appears to have ischemic cardiomyopathy. There also appears to be a possible pacer defibrillator artifact in the right ventricle. Ejection fraction is in the 15% to 20% range. TRANSINT:[id number] Voice Confirmation ID: [id number] DOCUMENT ID: [id number] OSMAR COREY MD at 0741 CC: [id number] DICTATION DATE: 06/05/17 0824 PARTS ADVISOR: 06/05/17 1044 DIS IN 06/11/17 [facility] [address] [place] [address]
[2017-06-02 13:26] LABS: BASOPHILS 0.3 % (0-2); EOSINOPHILS 0.6 % (0-7); HEMOGLOBIN 12.8 g/dL (13.5-17.5); IMMATURE GRANULOCYTES 0.6 % (0-5); LYMPHOCYTES 10.6 % (15-50); MCH 28.6 pg (26.0-34.0); MCHC 32.8 g/dL (31.0-37.0); MCV 87.1 fL (80.0-100.0); MEAN PLATELET VOLUME 10.4 fL (7.4-10.4); MONOCYTES 6.5 % (2-11); NEUTROPHILS 81.4 % (40-80); PLATELET COUNT 274 10x3/uL (130-400); RBC 4.48 10x6/uL (4.20-6.10); RDW 17.9 % (11.5-14.5); WBC 15.4 10x3/uL (4.8-10.8)
[2017-06-02 13:48] LABS: ALBUMIN 2.4 g/dL (3.4-5.0); ALKALINE PHOSPHATASE 168 U/L (46-116); ALT (SGPT) 62 U/L (10-68); CALC OSMOLALITY 282 mosm/kg (275-300); CALCIUM 8.7 mg/dL (8.5-10.1); CARBON DIOXIDE 20.5 mmol/L (21.0-32.0); CHLORIDE - SERUM 96 mmol/L (98-107); CREATININE - SERUM 1.6 mg/dL (0.6-1.3); POTASSIUM - SERUM 5.3 mmol/L (3.5-5.1); PROTEIN - SERUM 7.3 g/dL (6.4-8.2); SODIUM 132 mmol/L (136-145); UREA NITROGEN 40 mg/dL (7-18); eGFR NON AFRICAN AMERICAN 45 mL/min (90-120)
[2017-06-02 13:49] LABS: GLUCOSE 236 mg/dL (74-106)
[2017-06-02 13:50] LABS: APTT 45.8 SECONDS (22.8-39.4)
[2017-06-02 13:55] LABS: TROPONIN-I < 0.017 ng/mL (0.000-0.060)
[2017-06-02 13:56] LABS: INR 2.29 (0.85-1.17); PROTIME 24.6 SECONDS (11.6-15.0)
[2017-06-02 15:46] LABS: APPEARANCE CLEAR (CLEAR); BILIRUBIN NEGATIVE (NEGATIVE); COLOR YELLOW (YELLOW); GLUCOSE NEGATIVE (NEGATIVE); KETONE NEGATIVE (NEGATIVE); NITRITE NEGATIVE (NEGATIVE); PROTEIN NEGATIVE (NEGATIVE); SPECIFIC GRAVITY 1.015 (1.005-1.020); UROBILINOGEN NORMAL (NORMAL)
[2017-06-02] MEDS ORDERED: TOPROL XL200 MG PO (20:21)
[2017-06-02] MEDS ORDERED: LASIX40 MG PO (20:22)
[2017-06-02] MEDS ORDERED: FERROUS SULFAT325 MG PO (20:23)
[2017-06-02] MEDS ORDERED: COLACE100 MG PO (20:24)
[2017-06-02] MEDS ORDERED: ACETAMINOPHEN500 M1 PO (20:25)
[2017-06-02] MEDS ORDERED: COUMADIN2.5 MG PO (20:32)
[2017-06-03] VITALS (45 sets, daily range): BP systolic 80–118; BP diastolic 41–80; Ht 182.9 cm; Wt 84.5 kg
[2017-06-03 04:35] LABS: BASOPHILS 0.1 % (0-2); EOSINOPHILS 0.3 % (0-7); HEMATOCRIT 32.9 % (42.0-54.0); HEMOGLOBIN 10.6 g/dL (13.5-17.5); IMMATURE GRANULOCYTES 0.4 % (0-5); LYMPHOCYTES 10.8 % (15-50); MCH 28.1 pg (26.0-34.0); MCHC 32.2 g/dL (31.0-37.0); MCV 87.3 fL (80.0-100.0); MEAN PLATELET VOLUME 10.3 fL (7.4-10.4); MONOCYTES 9.6 % (2-11); NEUTROPHILS 78.8 % (40-80); PLATELET COUNT 230 10x3/uL (130-400); RBC 3.77 10x6/uL (4.20-6.10); RDW 18.3 % (11.5-14.5); WBC 13.4 10x3/uL (4.8-10.8)
[2017-06-03 04:53] LABS: ANION GAP 17.7 mmol/L (8-16); CALCIUM 7.8 mg/dL (8.5-10.1); CREATININE - SERUM 1.7 mg/dL (0.6-1.3); POTASSIUM - SERUM 4.7 mmol/L (3.5-5.1)
[2017-06-04] VITALS (24 sets, daily range): BP systolic 90–118; BP diastolic 30–69
[2017-06-04 04:33] LABS: BASOPHILS 0.2 % (0-2); HEMATOCRIT 29.2 % (42.0-54.0); HEMOGLOBIN 9.4 g/dL (13.5-17.5); IMMATURE GRANULOCYTES 0.2 % (0-5); LYMPHOCYTES 10.2 % (15-50); MCH 28.6 pg (26.0-34.0); MCHC 32.2 g/dL (31.0-37.0); MCV 88.8 fL (80.0-100.0); MEAN PLATELET VOLUME 9.9 fL (7.4-10.4); MONOCYTES 9.8 % (2-11); NEUTROPHILS 78.6 % (40-80); RBC 3.29 10x6/uL (4.20-6.10); WBC 12.4 10x3/uL (4.8-10.8)
[2017-06-04 04:50] LABS: PLATELET COUNT 178 10x3/uL (130-400)
[2017-06-04 04:59] LABS: BILIRUBIN - TOTAL 0.3 mg/dL (0.2-1.3); CALCIUM 7.5 mg/dL (8.5-10.1); CARBON DIOXIDE 20.8 mmol/L (21.0-32.0); CREATININE - SERUM 1.4 mg/dL (0.6-1.3)
[2017-06-04 05:00] LABS: ALBUMIN 1.5 g/dL (3.4-5.0); ANION GAP 15.1 mmol/L (8-16); POTASSIUM - SERUM 3.9 mmol/L (3.5-5.1); PROTEIN - SERUM 5.1 g/dL (6.4-8.2)
[2017-06-05] VITALS (21 sets, daily range): BP systolic 83–130; BP diastolic 59–80
[2017-06-05 04:32] LABS: BASOPHILS 0.2 % (0-2); EOSINOPHILS 1.2 % (0-7); HEMATOCRIT 30.6 % (42.0-54.0); IMMATURE GRANULOCYTES 0.3 % (0-5); LYMPHOCYTES 9.2 % (15-50); MCH 28.7 pg (26.0-34.0); MCHC 32.7 g/dL (31.0-37.0); MCV 87.7 fL (80.0-100.0); MONOCYTES 8.9 % (2-11); NEUTROPHILS 80.2 % (40-80); PLATELET COUNT 178 10x3/uL (130-400); RBC 3.49 10x6/uL (4.20-6.10); RDW 19.5 % (11.5-14.5); WBC 12.4 10x3/uL (4.8-10.8)
[2017-06-05 04:44] LABS: PROTIME 32.5 SECONDS (11.6-15.0)
[2017-06-05 04:49] LABS: ALBUMIN 1.4 g/dL (3.4-5.0); BILIRUBIN - TOTAL 0.3 mg/dL (0.2-1.3); CALCIUM 7.9 mg/dL (8.5-10.1); CARBON DIOXIDE 18.9 mmol/L (21.0-32.0); CREATININE - SERUM 1.2 mg/dL (0.6-1.3); INR 3.26 (0.85-1.17); POTASSIUM - SERUM 3.9 mmol/L (3.5-5.1); PROTEIN - SERUM 5.3 g/dL (6.4-8.2)
[2017-06-06 03:00] VITALS: BP 119/63
[2017-06-06 03:42] LABS: BASOPHILS 0.1 % (0-2); HEMATOCRIT 27.6 % (42.0-54.0); IMMATURE GRANULOCYTES 0.4 % (0-5); LYMPHOCYTES 9.3 % (15-50); MCHC 32.6 g/dL (31.0-37.0); MEAN PLATELET VOLUME 9.7 fL (7.4-10.4); MONOCYTES 9.8 % (2-11); NEUTROPHILS 78.4 % (40-80); PLATELET COUNT 176 10x3/uL (130-400); RBC 3.21 10x6/uL (4.20-6.10); RDW 19.5 % (11.5-14.5); WBC 11.8 10x3/uL (4.8-10.8)
[2017-06-06 04:20] LABS: ALBUMIN 1.2 g/dL (3.4-5.0); ANION GAP 13.7 mmol/L (8-16); BILIRUBIN - TOTAL 0.3 mg/dL (0.2-1.3); CALCIUM 7.7 mg/dL (8.5-10.1); CARBON DIOXIDE 17.1 mmol/L (21.0-32.0); CREATININE - SERUM 1.1 mg/dL (0.6-1.3); POTASSIUM - SERUM 3.8 mmol/L (3.5-5.1); PROTEIN - SERUM 4.7 g/dL (6.4-8.2)
[2017-06-06 12:12] VITALS: BP 107/78
[2017-06-06 16:08] VITALS: BP 118/77
[2017-06-06 20:02] VITALS: BP 104/65
[2017-06-07] VITALS (7 sets, daily range): BP systolic 99–120; BP diastolic 59–73
[2017-06-07 05:14] LABS: BASOPHILS 0.3 % (0-2); EOSINOPHILS 2.5 % (0-7); HEMATOCRIT 31.8 % (42.0-54.0); HEMOGLOBIN 10.4 g/dL (13.5-17.5); IMMATURE GRANULOCYTES 0.4 % (0-5); LYMPHOCYTES 9.9 % (15-50); MCH 28.3 pg (26.0-34.0); MCHC 32.7 g/dL (31.0-37.0); MCV 86.4 fL (80.0-100.0); MEAN PLATELET VOLUME 9.6 fL (7.4-10.4); MONOCYTES 9.4 % (2-11); NEUTROPHILS 77.5 % (40-80); PLATELET COUNT 209 10x3/uL (130-400); RBC 3.68 10x6/uL (4.20-6.10); RDW 19.9 % (11.5-14.5); WBC 11.9 10x3/uL (4.8-10.8)
[2017-06-07 05:36] LABS: INR 4.97 (0.85-1.17); PROTIME 45.2 SECONDS (11.6-15.0)
[2017-06-07 05:38] LABS: CALCIUM 7.4 mg/dL (8.5-10.1); CHLORIDE - SERUM 111 mmol/L (98-107); POTASSIUM - SERUM 3.6 mmol/L (3.5-5.1); SODIUM 141 mmol/L (136-145); UREA NITROGEN 14 mg/dL (7-18); VANCOMYCIN - RANDOM 17.3 ug/mL (10.0-20.0); eGFR NON AFRICAN AMERICAN 78 mL/min (90-120)
[2017-06-07 05:54] LABS: ALBUMIN 1.2 g/dL (3.4-5.0); ALKALINE PHOSPHATASE 109 U/L (46-116); ALT (SGPT) 26 U/L (10-68); BILIRUBIN - TOTAL 0.36 mg/dL (0.2-1.3); CALC OSMOLALITY 281 mosm/kg (275-300); CARBON DIOXIDE 33.6 mmol/L (21.0-32.0); GLUCOSE 103 mg/dL (74-106); PROTEIN - SERUM 4.6 g/dL (6.4-8.2)
[2017-06-08 04:49] VITALS: BP 107/74
[2017-06-08 08:17] LABS: ALBUMIN 1.2 g/dL (3.4-5.0); ALKALINE PHOSPHATASE 97 U/L (46-116); ALT (SGPT) 22 U/L (10-68); CALC OSMOLALITY 280 mosm/kg (275-300); CALCIUM 7.8 mg/dL (8.5-10.1); CHLORIDE - SERUM 112 mmol/L (98-107); GLUCOSE 134 mg/dL (74-106); POTASSIUM - SERUM 4.1 mmol/L (3.5-5.1); PROTEIN - SERUM 4.8 g/dL (6.4-8.2); SODIUM 139 mmol/L (136-145); UREA NITROGEN 14 mg/dL (7-18); eGFR NON AFRICAN AMERICAN 78 mL/min (90-120)
[2017-06-08 08:18] LABS: CARBON DIOXIDE 15.8 mmol/L (21.0-32.0)
[2017-06-08 08:20] VITALS: BP 115/65
[2017-06-08 08:20] LABS: BASOPHILS 0.3 % (0-2); EOSINOPHILS 1.7 % (0-7); HEMATOCRIT 28.9 % (42.0-54.0); HEMOGLOBIN 9.7 g/dL (13.5-17.5); IMMATURE GRANULOCYTES 0.9 % (0-5); LYMPHOCYTES 12.1 % (15-50); MCH 28.2 pg (26.0-34.0); MCHC 33.6 g/dL (31.0-37.0); MEAN PLATELET VOLUME 9.3 fL (7.4-10.4); MONOCYTES 9.8 % (2-11); NEUTROPHILS 75.2 % (40-80); RBC 3.44 10x6/uL (4.20-6.10)
[2017-06-08 08:22] LABS: PLATELET COUNT 262 10x3/uL (130-400); WBC 14.9 10x3/uL (4.8-10.8)
[2017-06-08 13:01] VITALS: BP 93/59
[2017-06-08 16:03] VITALS: BP 107/50
[2017-06-08 20:33] VITALS: BP 100/62
[2017-06-08 23:55] VITALS: BP 98/59
[2017-06-09 04:22] VITALS: BP 108/62
[2017-06-09 04:30] LABS: INR 3.52 (0.85-1.17); PROTIME 34.5 SECONDS (11.6-15.0)
[2017-06-09 09:52] LABS: BASOPHILS 0.2 % (0-2); HEMATOCRIT 29.2 % (42.0-54.0); HEMOGLOBIN 9.6 g/dL (13.5-17.5); IMMATURE GRANULOCYTES 0.7 % (0-5); LYMPHOCYTES 10.5 % (15-50); MCH 28.4 pg (26.0-34.0); MCHC 32.9 g/dL (31.0-37.0); MEAN PLATELET VOLUME 9.5 fL (7.4-10.4); NEUTROPHILS 76.6 % (40-80); RBC 3.38 10x6/uL (4.20-6.10); RDW 20.4 % (11.5-14.5); WBC 12.3 10x3/uL (4.8-10.8)
[2017-06-09 09:56] LABS: MCV 86.4 fL (80.0-100.0); PLATELET COUNT 325 10x3/uL (130-400)
[2017-06-09 10:11] LABS: ALBUMIN 1.4 g/dL (3.4-5.0); BILIRUBIN - TOTAL 0.29 mg/dL (0.2-1.3); CALCIUM 7.9 mg/dL (8.5-10.1); CREATININE - SERUM 1.1 mg/dL (0.6-1.3); PROTEIN - SERUM 5.2 g/dL (6.4-8.2)
[2017-06-09 10:17] LABS: ANION GAP 13.6 mmol/L (8-16); CARBON DIOXIDE 20.6 mmol/L (21.0-32.0); POTASSIUM - SERUM 3.2 mmol/L (3.5-5.1)
[2017-06-09 10:36] VITALS: BP 103/57
[2017-06-09 13:35] VITALS: BP 103/61
[2017-06-09 18:39] VITALS: BP 106/52
[2017-06-09 20:58] VITALS: BP 95/59
[2017-06-10 00:40] VITALS: BP 106/51
[2017-06-10 04:38] VITALS: BP 99/58
[2017-06-10 06:19] LABS: PROTIME 28.5 SECONDS (11.6-15.0)
[2017-06-10 06:20] LABS: APTT 51.9 SECONDS (22.8-39.4)
[2017-06-10 06:27] LABS: INR 2.77 (0.85-1.17)
[2017-06-10 06:29] LABS: BASOPHILS 0.2 % (0-2); EOSINOPHILS 3.9 % (0-7); HEMOGLOBIN 9.2 g/dL (13.5-17.5); IMMATURE GRANULOCYTES 0.4 % (0-5); LYMPHOCYTES 12.9 % (15-50); MCH 28.4 pg (26.0-34.0); MCHC 32.9 g/dL (31.0-37.0); MCV 86.4 fL (80.0-100.0); MEAN PLATELET VOLUME 9.1 fL (7.4-10.4); MONOCYTES 10.9 % (2-11); NEUTROPHILS 71.7 % (40-80); PLATELET COUNT 310 10x3/uL (130-400); RBC 3.24 10x6/uL (4.20-6.10); RDW 20.7 % (11.5-14.5); WBC 10.1 10x3/uL (4.8-10.8)
[2017-06-10 06:45] LABS: ALBUMIN 1.3 g/dL (3.4-5.0); ANION GAP 10.8 mmol/L (8-16); BILIRUBIN - TOTAL 0.3 mg/dL (0.2-1.3); CALCIUM 7.9 mg/dL (8.5-10.1); CARBON DIOXIDE 22.3 mmol/L (21.0-32.0); CREATININE - SERUM 1.2 mg/dL (0.6-1.3); POTASSIUM - SERUM 3.1 mmol/L (3.5-5.1); PROTEIN - SERUM 4.9 g/dL (6.4-8.2)
[2017-06-10 09:10] VITALS: BP 104/64
[2017-06-10 13:51] VITALS: BP 96/59
[2017-06-10 15:00] VITALS: BP 131/45
[2017-06-10 20:00] VITALS: BP 95/57
[2017-06-11] VITALS: BP 107/58
[2017-06-11 04:00] VITALS: BP 100/56
[2017-06-11 04:37] LABS: BASOPHILS 0.4 % (0-2); EOSINOPHILS 3.4 % (0-7); HEMATOCRIT 28.7 % (42.0-54.0); HEMOGLOBIN 9.4 g/dL (13.5-17.5); IMMATURE GRANULOCYTES 0.3 % (0-5); LYMPHOCYTES 14.5 % (15-50); MCH 28.1 pg (26.0-34.0); MCHC 32.8 g/dL (31.0-37.0); MCV 85.9 fL (80.0-100.0); MEAN PLATELET VOLUME 8.8 fL (7.4-10.4); MONOCYTES 9.4 % (2-11); PLATELET COUNT 281 10x3/uL (130-400); RBC 3.34 10x6/uL (4.20-6.10); RDW 21.1 % (11.5-14.5); WBC 9.5 10x3/uL (4.8-10.8)
[2017-06-11 04:46] LABS: INR 2.29 (0.85-1.17); PROTIME 24.5 SECONDS (11.6-15.0)
[2017-06-11 04:48] LABS: ANION GAP 13.9 mmol/L (8-16); CARBON DIOXIDE 22.7 mmol/L (21.0-32.0); POTASSIUM - SERUM 3.6 mmol/L (3.5-5.1)
[2017-06-11 05:14] LABS: ALBUMIN 1.4 g/dL (3.4-5.0); BILIRUBIN - TOTAL 0.38 mg/dL (0.2-1.3); CALCIUM 7.7 mg/dL (8.5-10.1); CREATININE - SERUM 1.1 mg/dL (0.6-1.3); PROTEIN - SERUM 4.9 g/dL (6.4-8.2)
[2017-06-11 08:04] VITALS: BP 119/59
[2017-06-11 12:18] VITALS: BP 105/53
[2017-06-11] MEDS ORDERED: COUMADIN5 MG PO (13:00)
[2017-06-11] MEDS ORDERED: HUMALOG 30100 UNITS/ SC (13:01)
[2017-06-11] MEDS ORDERED: FLORAJEN3 CAPS460 MG PO (13:01)
[2017-06-11] MEDS ORDERED: PROTONIX40 MG PO (13:01)
== END 2017-06-11 18:18 | DRG 871 ==
LOC: D.ER 12:50 → D.ICU 16:03 → D.EDHOLD 16:03 → D.MS 16:03 → D.M2 16:23 → D.ICU 16:54 → D.MS 06-06 07:15
PROVIDERS: Emergency Medicine; Family Medicine; Internal Medicine Nephrology
DX: A41.9 Sepsis, unspecified organism (principal); R57.0 Cardiogenic shock; E43 Unspecified severe protein-calorie malnutrition; J18.9 Pneumonia, unspecified organism; R65.21 Severe sepsis with septic shock; N17.9 Acute kidney failure, unspecified; E87.1 Hypo-osmolality and hyponatremia; I42.9 Cardiomyopathy, unspecified; I50.22 Chronic systolic (congestive) heart failure; I13.0 Hypertensive heart and chronic kidney disease with heart failure and stage 1 through stage 4 chronic kidney disease, or unspecified chronic kidney disease; A04.72 Enterocolitis due to Clostridium difficile, not specified as recurrent; I95.9 Hypotension, unspecified; R55 Syncope and collapse; E11.22 Type 2 diabetes mellitus with diabetic chronic kidney disease; N18.3 Chronic kidney disease, stage 3 (moderate); D64.9 Anemia, unspecified; E87.5 Hyperkalemia; J43.9 Emphysema, unspecified; I25.10 Atherosclerotic heart disease of native coronary artery without angina pectoris; I73.9 Peripheral vascular disease, unspecified; Z95.1 Presence of aortocoronary bypass graft; Z79.01 Long term (current) use of anticoagulants; Z85.038 Personal history of other malignant neoplasm of large intestine; L89.152 Pressure ulcer of sacral region, stage 2; Z95.810 Presence of automatic (implantable) cardiac defibrillator

== ENCOUNTER 2017-06-11 19:00 | Inpatient (IN) | payer MEDICARE, OTHER ==
[~2017-06-11] VITALS: Ht 182.9 cm; Wt 66.2 kg
--- NOTE | ~2017-06-11 | DS ---
PATIENT:NITISH CENTENO :47 MEDICAL RECORD: [id number] DISCHARGE SUMMARY ADMISSION DATE: 06/11/17 DISCHARGE DATE: 06/18/17 This is a discharge dated 06/18/2017 from inpatient rehabilitation. PRIMARY DIAGNOSIS: Decreased functional ability and ability to provide activities of daily living secondary to disuse myopathy. SECONDARY DIAGNOSES: 1. Colon cancer, status post left hemicolectomy. 2. COPD. 3. CKD, stage III. 4. Hyperlipidemia. 5. Diabetes. 6. Congestive heart failure. 7. Atrial fibrillation. 8. Depression and anxiety. 9. Hypertension. 10. Peripheral vascular disease. 11. Coronary artery disease. 12. Anemia. HOSPITAL COURSE: Full H&P is located elsewhere on the chart on this 72-year-old male who was admitted to inpatient rehab for physical therapy and occupational therapy to improve gait, transfer skills, bed mobility, and activities of daily living to a modified independent level. He was evaluated by PT and OT and their plans of care were followed. He required care home care for observation and assessment and medication administration. Electrolytes were managed by protocol. He continued on appropriate home medications. Fingerstick blood sugars were monitored throughout his hospital stay with appropriate adjustment in medications as needed. He was cooperative with therapies, progressing towards goals. Case management was involved for discharge planning. He was considered stable for discharge on 06/18/2017. DISCHARGE MEDICATIONS: As per discharge medication reconciliation. DISCHARGE DISPOSITION: The patient is discharged home. He will continue his current diet and level of activity and [facility]. Home health was recommended for continued PT and OT and will follow up first set up of that through the [place]. At least 30 minutes was spent in this discharge activity. TRANSINT:[id number] Voice Confirmation ID: [id number] DOCUMENT ID: [id number] Dictated By: ARNAUD SOLARES I have interviewed/examined the above patient and agree with these documented findings. DISCHARGE SUMMARY REPORT [id number] TARYNNITISH HEIDY CASTRO MD at 1157 at 0940 CC: [id number] DICTATION DATE: 06/29/171914 TAILINGS WORKER: 06/30/17 0326 DIS IN 06/18/17 [facility] [address] [place], [place] [id number]
[~2017-06-11 19:00] MED LIST changes: +ACETAMINOPHEN500 M1 PO; +COLACE100 MG PO; +FERROUS SULFAT325 MG PO; +FLORAJEN3 CAPS460 MG PO; +HUMALOG 30100 UNITS/ SC; +LASIX40 MG PO; +PROTONIX40 MG PO
[2017-06-11 20:17] VITALS: BP 115/66; BMI 19.8
[2017-06-11 22:07] VITALS: BP 115/66
[2017-06-12 02:55] LABS: APPEARANCE CLOUDY (CLEAR); BILIRUBIN NEGATIVE (NEGATIVE); COLOR YELLOW (YELLOW); GLUCOSE NEGATIVE (NEGATIVE); KETONE NEGATIVE (NEGATIVE); NITRITE NEGATIVE (NEGATIVE); PROTEIN NEGATIVE (NEGATIVE); UROBILINOGEN NORMAL (NORMAL)
[2017-06-12 02:56] LABS: BACTERIA FEW /hpf (NONE SEEN); EPITHELIAL CELLS 0-5 /hpf (0-5); HYALINE CAST 0-5 /lpf (NONE SEEN); RED CELLS - URINE 0-5 /hpf (0-5); WHITE CELLS - URINE 0-5 /hpf (0-5); YEAST >1+ WITH HYPHAE /hpf (NONE SEEN)
[2017-06-12 06:42] LABS: ANION GAP 15.5 mmol/L (8-16); CALCIUM 7.6 mg/dL (8.5-10.1); CREATININE - SERUM 1.1 mg/dL (0.6-1.3); POTASSIUM - SERUM 3.5 mmol/L (3.5-5.1)
[2017-06-12 07:09] LABS: BASOPHILS 0.2 % (0-2); EOSINOPHILS 1.9 % (0-7); HEMATOCRIT 28.8 % (42.0-54.0); HEMOGLOBIN 9.4 g/dL (13.5-17.5); IMMATURE GRANULOCYTES 0.5 % (0-5); INR 2.69 (0.85-1.17); LYMPHOCYTES 12.1 % (15-50); MCH 28.8 pg (26.0-34.0); MCHC 32.6 g/dL (31.0-37.0); MONOCYTES 9.5 % (2-11); NEUTROPHILS 75.8 % (40-80); PLATELET COUNT 275 10x3/uL (130-400); PROTIME 27.9 SECONDS (11.6-15.0); RBC 3.26 10x6/uL (4.20-6.10); RDW 21.6 % (11.5-14.5); WBC 10.3 10x3/uL (4.8-10.8)
[2017-06-12 07:11] LABS: MCV 88.3 fL (80.0-100.0)
[2017-06-12 08:00] VITALS: BP 111/60
[2017-06-12 12:26] VITALS: Ht 182.9 cm; Wt 66.2 kg
[2017-06-12 19:09] VITALS: BP 107/62
[2017-06-13 06:38] LABS: INR 3.14 (0.85-1.17); PROTIME 31.5 SECONDS (11.6-15.0)
[2017-06-13 08:00] VITALS: BP 103/54
[2017-06-13 20:39] VITALS: BP 106/62
[2017-06-14 08:21] LABS: INR 3.13 (0.85-1.17); PROTIME 31.4 SECONDS (11.6-15.0)
[2017-06-14 08:38] VITALS: BP 90/63
[2017-06-14 20:54] VITALS: BP 129/66
[2017-06-15 07:45] LABS: INR 2.35 (0.85-1.17); PROTIME 25.1 SECONDS (11.6-15.0)
[2017-06-15 09:09] VITALS: BP 109/58
[2017-06-16 05:58] LABS: BASOPHILS 0.1 % (0-2); EOSINOPHILS 2.3 % (0-7); HEMATOCRIT 29.9 % (42.0-54.0); HEMOGLOBIN 9.5 g/dL (13.5-17.5); IMMATURE GRANULOCYTES 0.3 % (0-5); LYMPHOCYTES 11.6 % (15-50); MCH 28.5 pg (26.0-34.0); MCHC 31.8 g/dL (31.0-37.0); MCV 89.8 fL (80.0-100.0); MEAN PLATELET VOLUME 9.2 fL (7.4-10.4); MONOCYTES 10.1 % (2-11); NEUTROPHILS 75.6 % (40-80); PLATELET COUNT 279 10x3/uL (130-400); RBC 3.33 10x6/uL (4.20-6.10); RDW 22.1 % (11.5-14.5); WBC 10.4 10x3/uL (4.8-10.8)
[2017-06-16 06:03] LABS: INR 2.15 (0.85-1.17); PROTIME 23.4 SECONDS (11.6-15.0)
[2017-06-16 06:27] LABS: CALC OSMOLALITY 286 mosm/kg (275-300); CALCIUM 7.7 mg/dL (8.5-10.1); CHLORIDE - SERUM 107 mmol/L (98-107); GLUCOSE 115 mg/dL (74-106); POTASSIUM - SERUM 3.9 mmol/L (3.5-5.1); SODIUM 142 mmol/L (136-145); UREA NITROGEN 20 mg/dL (7-18); eGFR NON AFRICAN AMERICAN 78 mL/min (90-120)
[2017-06-16 08:00] VITALS: BP 109/68
[2017-06-16 19:54] VITALS: BP 105/56
[2017-06-17 06:29] LABS: INR 2.02 (0.85-1.17); PROTIME 22.3 SECONDS (11.6-15.0)
[2017-06-17 08:00] VITALS: BP 116/67
[2017-06-17 19:48] VITALS: BP 116/66
[2017-06-18 06:45] LABS: BASOPHILS 0.1 % (0-2); EOSINOPHILS 2.9 % (0-7); HEMATOCRIT 28.7 % (42.0-54.0); HEMOGLOBIN 9.2 g/dL (13.5-17.5); IMMATURE GRANULOCYTES 0.2 % (0-5); LYMPHOCYTES 12.9 % (15-50); MCH 28.8 pg (26.0-34.0); MCHC 32.1 g/dL (31.0-37.0); MEAN PLATELET VOLUME 9.3 fL (7.4-10.4); MONOCYTES 11.1 % (2-11); NEUTROPHILS 72.8 % (40-80); PLATELET COUNT 279 10x3/uL (130-400); RBC 3.19 10x6/uL (4.20-6.10); RDW 21.4 % (11.5-14.5); WBC 9.2 10x3/uL (4.8-10.8)
[2017-06-18 06:55] LABS: PROTIME 22.1 SECONDS (11.6-15.0)
[2017-06-18 07:25] LABS: CALC OSMOLALITY 288 mosm/kg (275-300); CALCIUM 8.2 mg/dL (8.5-10.1); CARBON DIOXIDE 26.2 mmol/L (21.0-32.0); CHLORIDE - SERUM 106 mmol/L (98-107); CREATININE - SERUM 0.9 mg/dL (0.6-1.3); GLUCOSE 105 mg/dL (74-106); SODIUM 143 mmol/L (136-145); UREA NITROGEN 23 mg/dL (7-18); eGFR NON AFRICAN AMERICAN 88 mL/min (90-120)
[2017-06-18 08:00] VITALS: BP 126/64
[2017-06-18] MEDS ORDERED: COUMADIN4 MG PO (09:03)
== END 2017-06-18 14:10 | disposition home or self-care (01) | DRG 91 ==
LOC: D.REHAB 19:00
PROVIDERS: Emergency Medicine
DX: G72.89 Other specified myopathies (principal); E43 Unspecified severe protein-calorie malnutrition; I13.0 Hypertensive heart and chronic kidney disease with heart failure and stage 1 through stage 4 chronic kidney disease, or unspecified chronic kidney disease; I50.22 Chronic systolic (congestive) heart failure; N17.9 Acute kidney failure, unspecified; C77.2 Secondary and unspecified malignant neoplasm of intra-abdominal lymph nodes; C18.9 Malignant neoplasm of colon, unspecified; D62 Acute posthemorrhagic anemia; I42.9 Cardiomyopathy, unspecified; E87.1 Hypo-osmolality and hyponatremia; E11.22 Type 2 diabetes mellitus with diabetic chronic kidney disease; N18.3 Chronic kidney disease, stage 3 (moderate); J44.9 Chronic obstructive pulmonary disease, unspecified; I25.10 Atherosclerotic heart disease of native coronary artery without angina pectoris; E11.65 Type 2 diabetes mellitus with hyperglycemia; Z68.25 Body mass index [BMI] 25.0-25.9, adult